=== PATIENT | male | born 1985 | race Caucasian/White ===

== ENCOUNTER 2022-08-08 05:59 | Emergency (ER) | payer SELFPAY ==
[2022-08-08] MEDS ORDERED: MECLIZINE HCL 12.5 MG TAB ONE (06:32)
[2022-08-08] MEDS ORDERED: ONDANSETRON 4 MG (ODT) TAB ONE (06:46)
[2022-08-08 07:19] LABS: Hematocrit 41.7 % (39.6-49.0); Lymphocytes % 57.3 % (15.3-44.8); MCV 88.8 fL (80-100); MPV 6.2 fL (7.6-11.3)
[2022-08-08 07:22] LABS: Magnesium 2.1 mg/dL (1.8-2.4); Potassium 3.8 mmol/L (3.5-5.1); Troponin High Sensitivity 3.4 pg/mL (<58.9)
[2022-08-08] MEDS ORDERED: MIDAZOLAM HCL 2 MG/2 ML INJ ONE (07:40)
--- NOTE | 2022-08-08 08:15 | EDPHYS ---
Physician Documentation [facility] Name: Patricio Byrnes Age: 36 yrs Sex: Male : 1985 Arrival Date: 08/08/2022 Time: 06:01 Bed 8 Private MD: [place] Physician Moshe Hardin HPI: 08/08 07:44 This 36 yrs old Male presents to ER via Wheelchair with complaints of Dizziness. ms3 07:44 36-year-old male with no past medical history presents for dizziness that began on ms3 waking up this morning. Patient states nothing alleviates his symptoms. Patient states walking and movement makes the dizziness worse. Patient describes the dizziness as a room spinning. Patient states he did have some chest pain, nausea, vomiting. Patient denies shortness of breath. Patient denies pain.. Historical: - Allergies: 06:23 No Known Allergies; bb - Home Meds: 06:23 None [Active]; bb - PMHx: 06:23 None; bb - PSHx: 06:23 None; bb - Immunization history:: Client reports having NOT received the Covid vaccine. - Social history:: Smoking status: Patient denies any tobacco usage or history of. ROS: 07:44 Constitutional: Negative for fever, and chills. Neck: Negative for injury, pain, and ms3 swelling, Cardiovascular: Negative for chest pain, and palpitations. Respiratory: Negative for shortness of breath, cough, wheezing, and pleuritic chest pain. 07:44 Skin: Negative for injury, rash, and discoloration. 07:44 Abdomen/GI: Positive for nausea and vomiting. 07:44 Neuro: Positive for dizziness. 07:44 All other systems are negative. Exam: 06:38 ECG was reviewed by the Attending Physician. ms3 07:44 Constitutional: This is a well developed, well nourished patient who is awake, alert, ms3 and in no acute distress. Head/Face: Normocephalic, atraumatic. Neck: Trachea midline, no cervical lymphadenopathy. Supple, full range of motion without nuchal rigidity, or vertebral point tenderness. No Meningismus. Chest/axilla: Normal chest wall appearance and motion. Nontender with no deformity. Cardiovascular: Regular rate and rhythm with a normal S1 and S2. No gallops, murmurs, or rubs. Normal PMI, no JVD. No pulse deficits. Respiratory: Lungs have equal breath sounds bilaterally, clear to auscultation and percussion. No rales, rhonchi or wheezes noted. No increased work of breathing, no retractions or nasal flaring. Abdomen/GI: Soft, non-tender, with normal bowel sounds. No distension or tympany. No guarding or rebound. No evidence of tenderness throughout. Back: No spinal tenderness. No costovertebral tenderness. Full range of motion. Skin: Warm, dry with normal turgor. Normal color with no rashes, no lesions, and no evidence of cellulitis. MS/ Extremity: Pulses equal, no cyanosis. Neurovascular intact. Full, normal range of motion. Neuro: Awake and alert, GCS 15, oriented to person, place, time, and situation. Cranial nerves II-XII grossly intact. Motor strength 5/5 in all extremities. Sensory grossly intact. Cerebellar exam normal. Normal gait. Psych: Awake, alert, with orientation to person, place and time. Behavior, mood, and affect are within normal limits. 08:07 Neck: External neck: is normal, C-spine: appears grossly normal, no acute changes, paige Thyroid: appears normal, no acute changes, Trachea: is midline with no obvious abnormalities, no acute changes, ROM/movement: is normal, no acute changes, Lymph nodes: no appreciated lymphadenopathy. Vital Signs: 06:21 BP 137 / 99; Pulse 87; Resp 20 S; Temp 97.9(O); Pulse Ox 98% on R/A; Weight 104.33 kg bb (R); Height 5 ft. 11 in. (180.34 cm) (R); 07:36 BP 118 / 91; Pulse 55; Resp 16; Pulse Ox 98% ; mb8 07:58 BP 127 / 82; Pulse 57; Resp 14; Pulse Ox 95% ; Pain 0/10; mb8 06:21 Body Mass Index 32.08 (104.33 kg, 180.34 cm) bb MDM: 06:29 Patient medically screened. ms3 08:08 Data reviewed: vital signs, nurses notes, lab test result(s), EKG, radiologic studies, paige CT scan, plain films. 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 Test interpretation: by ED physician or midlevel provider: ECG, plain radiologic studies. Counseling: I had a detailed discussion with the patient and/or guardian regarding: the historical points, exam findings, and any diagnostic results supporting the discharge/admit diagnosis, the presence of at least one elevated blood pressure reading (>120/80) during this emergency department visit, lab results, radiology results, the need for outpatient follow up, for definitive care, a family practitioner, a neurologist. 08/08 06:29 Order name: Basic Metabolic Panel; Complete Time: 07:23 ms3 08/08 06:29 Order name: CBC with Diff ms3 08/08 06:29 Order name: Magnesium; Complete Time: 07:23 ms3 08/08 06:29 Order name: Troponin HS; Complete Time: 07:23 ms3 08/08 06:29 Order name: XRAY Chest (1 view) ms3 08/08 07:25 Order name: Manual Differential EDMS 08/08 06:29 Order name: EKG; Complete Time: 06:29 ms3 08/08 06:29 Order name: Cardiac monitoring; Complete Time: 06:52 ms3 08/08 06:29 Order name: EKG - Nurse/Tech; Complete Time: 06:52 ms3 08/08 06:29 Order name: IV Saline Lock; Complete Time: 06:52 ms3 08/08 07:29 Order name: CT Head Brain wo Cont ms3 08/08 06:29 Order name: Labs collected and sent; Complete Time: 06:52 ms3 08/08 06:29 Order name: O2 Per Protocol; Complete Time: 06:52 ms3 08/08 06:29 Order name: O2 Sat Monitoring; Complete Time: 06:52 ms3 EC:38 Rate is 56 beats/min. Rhythm is regular. QRS [place] is Normal. MA interval is normal. ms3 Clinical impression: Sinus bradycardia. Interpreted by me. Reviewed by me. Administered Medications: 06:33 Drug: Meclizine 50 mg Route: PO; jb4 06:58 Drug: Ondansetron 4 mg Route: PO; tw5 08:06 Follow up: Response: No adverse reaction; Nausea unchanged mb8 07:34 Drug: Midazolam 2 mg Route: IVP; Site: right antecubital; mb8 08:06 Follow up: Response: No adverse reaction; Marked relief of symptoms; Nausea is mb8 decreased; RASS: Alert and Calm (0) Disposition Summary: 08/08/22 08:14 Discharge Ordered Location: Home paige Problem: new paige Symptoms: have improved paige Condition: Stable paige Diagnosis - Benign paroxysmal vertigo, unspecified ear paige - Dizziness and giddiness paige Followup: paige - With: Private Physician - When: 2 - 3 days - Reason: Recheck today's complaints, Continuance of care, Re-evaluation by your physician Followup: paige - With: - When: 2 - 3 days - Reason: Recheck today's complaints, Re-evaluation by your physician Discharge Instructions: - Discharge Summary Sheet paige - Benign Positional Vertigo paige - Dizziness paige - Vertigo paige - Aspirin and Your Heart paige - Dizziness, [id number] paige Forms: - Medication Reconciliation Form paige - Thank You Letter paige - Antibiotic Education paige - Prescription Opioid Use paige Prescriptions: - Meclizine 25 mg Oral Tablet - take 1 tablet by ORAL route every 8 hours As needed; 30 tablet; Refills: 0, paige Product Selection Permitted - Zofran 4 mg Oral Tablet - take 1 tablet by ORAL route every 12 hours As needed; 20 tablet; Refills: 0, paige Product Selection Permitted - Medrol (Ralph) 4 mg Oral Tablets, Dose Pack - take 1 tablet by ORAL route as directed - follow package instructions; 1 paige packet; Refills: 0, Product Selection Permitted Signatures: Dispatcher [employer] Moshe Burch MD MD cha Ballard, Brenda, RN RN bb Aashish Rao, RN RN jb4 Erickson Chatterjee DO DO ms3 Paula Amaya tw5 Frank Cisneros, RN RN mb8
--- NOTE | 2022-08-08 08:15 | ER ---
Nurse's Notes [facility] Name: Patricio Byrnes Age: 36 yrs Sex: Male : 1985 Arrival Date: 08/08/2022 Time: 06:01 Bed 8 Private MD: Diagnosis: Benign paroxysmal vertigo, unspecified ear;Dizziness and giddiness Presentation: 08/08 06:21 Chief complaint: Patient states: he woke up dizzy and vomiting, couldn't walk and the bb room is spinning. Coronavirus screen: At this time, the client does not indicate any symptoms associated with coronavirus-19. Ebola Screen: No symptoms or risks identified at this time. Initial Sepsis Screen: Does the patient meet any 2 criteria? No. Patient's initial sepsis screen is negative. Does the patient have a suspected source of infection? No. Patient's initial sepsis screen is negative. Risk Assessment: Do you want to hurt yourself or someone else? Patient reports no desire to harm self or others. Onset of symptoms was August 08, 2022. 06:21 Method Of Arrival: Wheelchair bb 06:21 Acuity: CLOVIS 3 bb Triage Assessment: 06:57 General: Appears in no apparent distress. Behavior is appropriate for age. tw5 Historical: - Allergies: 06:23 No Known Allergies; bb - Home Meds: 06:23 None [Active]; bb - PMHx: 06:23 None; bb - PSHx: 06:23 None; bb - Immunization history:: Client reports having NOT received the Covid vaccine. - Social history:: Smoking status: Patient denies any tobacco usage or history of. Screenin:52 Abuse screen: Denies threats or abuse. Denies injuries from another. Nutritional tw5 screening: No deficits noted. Tuberculosis screening: No symptoms or risk factors identified. Fall Risk IV access (20 points). Assessment: 06:52 General: Reports "I woke up and went to the washroom and I felt funny like I was having tw5 trouble. Then I got to my car, and I was thinking I shouldn't drive because I was having trouble with my balance, but I did anyway. I started driving and everything just got worse. My chest started hurting, I got nauseous and I broke out in a sweat.". Pain: Pain currently is 2 out of 10 on a pain scale. at worst was 7 out of 10 on a pain scale. Neuro: Level of Consciousness is awake, alert, obeys commands, Oriented to person, place, time, situation. Derm: Skin is diaphoretic, Skin is pale. 06:57 GI: Pt is actively vomiting clear fluid. tw5 07:58 Reassessment: Patient and/or family updated on plan of care and expected duration. Pain mb8 level reassessed. Patient is alert, oriented x 3, equal unlabored respirations, skin warm/dry/pink. Patient denies any dizziness or nausea at this time. Patient denies pain at this time. Patient states feeling better. Patient states symptoms have improved. Vital Signs: 06:21 BP 137 / 99; Pulse 87; Resp 20 S; Temp 97.9(O); Pulse Ox 98% on R/A; Weight 104.33 kg bb (R); Height 5 ft. 11 in. (180.34 cm) (R); 07:36 BP 118 / 91; Pulse 55; Resp 16; Pulse Ox 98% ; mb8 07:58 BP 127 / 82; Pulse 57; Resp 14; Pulse Ox 95% ; Pain 0/10; mb8 06:21 Body Mass Index 32.08 (104.33 kg, 180.34 cm) bb Vitals: 07:58 Cardiac Rhythm Assessment Sinus kirk. mb8 ED Course: 06:01 Patient arrived in ED. bp1 06:21 Erickson Chatterjee DO is Attending Physician. ms3 06:23 Triage completed. bb 06:23 Arm band placed on Patient placed in an exam room, on a stretcher, on pulse oximetry. bb 06:28 Paula Amaya is Primary Nurse. tw5 06:45 XRAY Chest (1 view) In Process Unspecified. EDMS 06:52 Awaiting lab results. tw5 06:52 Patient has correct armband on for positive identification. Placed in gown. Bed in low tw5 position. Call light in reach. Side rails up X 1. Adult w/ patient. Client placed on continuous cardiac and pulse oximetry monitoring. NIBP monitoring applied. Door closed. Noise minimized. Moved to private room. Warm blanket given. Verbal reassurance given. 06:52 Basic Metabolic Panel Sent. tw5 06:52 CBC with Diff Sent. tw5 06:52 Magnesium Sent. tw5 06:52 Troponin HS Sent. tw5 06:52 Initial lab(s) drawn, by mt, sent to lab. EKG done. Inserted saline lock: 20 gauge in tw5 right antecubital area, using aseptic technique. Blood collected. 07:48 Attending Physician role handed off by Erickson Chatterjee DO cha 07:48 Moshe Hardin MD is Attending Physician. [facility] 07:51 CT Head Brain wo Cont In Process Unspecified. EDAK 08:14 Elia Turpin MD is Referral Physician. paige 09:07 No provider procedures requiring assistance completed. IV discontinued, intact, mb8 bleeding controlled, No redness/swelling at site. Pressure dressing applied. Administered Medications: 06:33 Drug: Meclizine 50 mg Route: PO; jb4 06:58 Drug: Ondansetron 4 mg Route: PO; tw5 08:06 Follow up: Response: No adverse reaction; Nausea unchanged mb8 07:34 Drug: Midazolam 2 mg Route: IVP; Site: right antecubital; mb8 08:06 Follow up: Response: No adverse reaction; Marked relief of symptoms; Nausea is mb8 decreased; RASS: Alert and Calm (0) Medication: 06:52 VIS not applicable for this client. tw5 Outcome: 08:14 Discharge ordered by . paige 09:07 Discharged to home with family. mb8 09:07 Condition: stable 09:07 Discharge instructions given to patient. 09:08 Patient left the ED. mb8 Signatures: Dispatcher [employer] EDAK Moshe Hardin MD MD cha Ballard, Brenda RN RN Aashish Flores RN RN jb4 Erickson Chatterjee DO DO ms3 Naheed Cortez Tiffany tw5 Frank Cisneros RN RN mb8
--- NOTE | 2022-08-08 08:15 | RAD REPORT ---
EXAM DESCRIPTION: RAD - Chest Single View - 08/08/2022 6:44 am CLINICAL HISTORY: CHEST PAIN Chest pain. COMPARISON: No comparisons FINDINGS: Portable technique limits examination quality. The lungs are grossly clear. The heart is normal in size. No displaced fractures. IMPRESSION: No acute intrathoracic process suspected.
--- NOTE | 2022-08-08 08:17 | RAD REPORT ---
EXAM DESCRIPTION: CT - Head Brain Wo Cont - 08/08/2022 7:50 am CLINICAL HISTORY: Dizziness Headache, drowsiness COMPARISON: No comparisons TECHNIQUE: All CT scans are performed using dose optimization technique as appropriate and may inclu de automated exposure control or mA/KV adjustment according to patient size. FINDINGS: No intracranial hemorrhage, hydrocephalus or extra-axial fluid collection.No areas of brai n edema or evidence of midline shift. The paranasal sinuses and mastoids are clear. The calvarium is intact. IMPRESSION: No acute intracranial abnormality.
[2022-08-08 08:35] LABS: Blood Morphology Comment NOT SEEN (NOT SEEN); Platelet Estimate ADEQ
--- NOTE | 2022-08-08 13:36 | EKG ---
Test Date: 2022-08-08 Test Time: 06:38:53 Wire Stitcher: MEASUREMENT RESULTS: Intervals: Rate: 56 OH: 168 QRSD: 98 QT: 422 QTc: 407 [place]: P: 14 OH: 168 QRS: 42 T: 30 INTERPRETIVE STATEMENTS: Sinus bradycardia with sinus arrhythmia Otherwise normal ECG No previous ECG available for comparison Electronically Signed On 08-08-22 13:36:12 CDT by Tim Camp
[2022-08-10 01:05] VITALS: TEMP 97.9
[2022-08-10 01:11] VITALS: BP 127/82; O2SAT 95
== END 2022-08-08 09:08 | disposition home or self-care (01) ==
LOC: ER 05:59
DX: H81.10 Benign paroxysmal vertigo, unspecified ear (principal)
CPT/HCPCS: 36415; 70450; 71045; 80048; 83735; 84484; 85025; 93005; 96374; 99284; J2250; J8597; Q0162